=== PATIENT | female | born 1980 | race Caucasian/White ===

== ENCOUNTER 2017-08-17 17:27 | Emergency (ER) | payer SELFPAY ==
[~2017-08-17] VITALS: Ht 170.2 cm; Wt 79.4 kg
[2017-08-17] MEDS ORDERED: PROMETHAZINE W/CODEINE 5 ML ORAL SYRUP PO ONE (23:15)
[2017-08-17] MEDS ORDERED: ONDANSETRON HCL 4 MG/2 ML VIAL IM ONE (23:15)
[2017-08-17 23:29] VITALS: BP 125/82
== END 2017-08-17 23:16 | disposition home or self-care (01) ==
LOC: ER 17:27
DX: R42 Dizziness and giddiness (principal); E03.9 Hypothyroidism, unspecified; Z91.14 Patient's other noncompliance with medication regimen
CPT/HCPCS: 70450